=== PATIENT | female | born 1990 | race Caucasian/White ===

== ENCOUNTER → 2016-06-28 | Outpatient (CLI) | payer BC, MEDICAID ==
[~2016-06-28] MED LIST: ALKA-SELTZER E1 EACH PO; AMARYL1 MG PO; APNO TOP; BUSPAR5 MG PO; DERMOPLAST SPRA56 GM TOP; MOTRIN800 MG PO; PEPCID AC10 MG PO; PERCOCET 5-3251 EACH PO; PRENATAL 1+1)(P1 TAB PO
--- NOTE | ~2016-06-28 | ECHO ---
Transthoracic Echocardiography Report (TTE) Demographics Patient Name LATONIA ROBBINS Date of Study 06/28/2016 Patient Number [id number] Visit Number [id number] Date of 1990 Room Number Gender Female Number Age 26 year(s) Referring Didier Arellano MD Flower Picker Dione Yost RVT, Physician Pancho Mcclure MD Physician Interpreting Pancho Senior Revenue Accountant Physician Tisha Mcclure MD Supervising Ordering Pancho MD/MLP Physician Tisha Mcclure MD Nurse Stress Geomagnetist Conclusions Contractility Score Summary Normal Left Ventricular contractility was noted. Summary The estimated left ventricular ejection fraction is 60%. The left ventricle is normal in size . Diastolic assessment reveals probably normal diastolic function . Procedure Type of Study TTE procedure:2D Echocardiogram. Procedure Date Date: 06/28/2016 Start: 11:43 AM Study Location: Echo Lab Technical Quality: Good visualization Indications:Palpitations. Appropriate Use Criteria: 8 Patient Status: Routine Rhythm: NSR HR: 93 bpm BP: 137/65 mmHg M-Mode/2D Measurements LV Diastolic Dimension: 4.02 cm LV Systolic Dimension: 2.89 cm LV Septum Diastolic: 1.19 cm LV PW Diastolic: 0.97 cm AO Root Dimension: 1.9 cm Cardiac Output: 5.03 l/min AV Cusp Separation: 1.7 cm RV Diastolic Dimension: 3.09 cm LA volume: 39 ml LVOT: 1.9 cm RV Base: 2.69 cm LVOT VTI: 19.1 cm RV Mid: 2.23 cm LV Stroke volume: 54.13 ml TAPSE: 2.17 cm TDI-S': 12.3 cm/s Doppler Measurements AV Peak Velocity: 1.32 m/s MV Peak E-Wave: 0.58 m/s AV Peak Gradient: 6.97 mmHg MV Peak A-Wave: 0.65 m/s AV Mean Gradient: 4 mmHg MV E/A Ratio: 0.89 LVOT Peak Velocity: 0.9 m/s MV Deceleration Time: 222 msec PV Peak Velocity: 1 m/s PV Peak Gradient: 4 mmHg E' Septal Velocity: 0.09 m/s A' Septal Velocity: 0.16 m/s E' Lateral Velocity: 0.12 m/s A' Lateral Velocity: 0.09 m/s Findings Left Ventricle The left ventricle is normal in size . Diastolic assessment reveals probably normal diastolic function . Right Ventricle Normal right ventricle structure and function. Left Atrium Normal left atrial size. There is no evidence of patent foramen ovale or atrial septal defect by color Doppler. Right Atrium Normal right atrial size. Mitral Valve Normal mitral valve structure and function. Aortic Valve Normal aortic valve structure and function. Tricuspid Valve Normal tricuspid valve structure and function. Trivial tricuspid regurgitation . Pulmonic Valve Normal pulmonic valve structure and function. Pericardial Effusion No evidence of pericardial effusion. Miscellaneous Visualized portions of the aortic root and ascending aorta appear normal in size. Pleural Effusion No evidence of pleural effusion. Contractility Score LV regional wall motion:(0-Non visualized 1-Normal 2-Hypokinesis 3-Akinesis 4-Dyskinesis 5-Aneurysm) Signature dtt: Buster Deleon dtd: 06/28/16 1143 Physician Self Edit
== END | disposition disaster alternative care site (69) ==
LOC: GCAR 11:37
DX: R00.2 Palpitations (principal)

== ENCOUNTER → 2016-06-28 | Outpatient (CLI) | payer BC, MEDICAID ==
[2016-06-28 13:39] LABS: ANION GAP 14.8 (10.0-19.0); BLOOD UREA NITROGEN 8 mg/dL (6-24); CALCIUM 8.7 mg/dL (8.5-10.5); CHLORIDE 110 mMol/L (96-110); CO2 19 mMol/L (22-32); CREATININE 0.3 mg/dL (0.5-1.1); ESTIMATED GFR (MDRD EQUATION) > 60; MAGNESIUM 1.9 mg/dL (1.8-2.6); POTASSIUM 3.8 mMol/L (3.7-5.1); SODIUM 140 mMol/L (135-145)
== END ==
LOC: LNHI 12:57
PROVIDERS: Internal Medicine Cardiovascular Disease
DX: R00.2 Palpitations (principal)

== ENCOUNTER 2016-09-09 19:16 | Outpatient (CLI) | payer BC, MEDICAID ==
[~2016-09-09] VITALS: Ht 152.4 cm; Wt 90.2 kg
--- NOTE | ~2016-09-09 | HP ---
PATIENT'S NAME: JEANE ROBBINSLEY Deedee [facility] AGE: 26 Y [address] ROOM: [place] [address] LOCATION: [facility] ADMIT DATE: 09/09/2016 History & Physical DISCHARGE DATE: 09/09/2016 FAMILY PHYSICIAN: Eric Chi MD ATTENDING PHYSICIAN: Eric Chi DATE OF SERVICE: CHIEF COMPLAINT: Increased movement. HISTORY OF PRESENT ILLNESS: The patient is a 26-year-old with intrauterine at 36 weeks and 3 days, who presented with increased movement. The patient denies any loss of fluids, bleeding, or contractions. The patient denies any fevers, chest pain, shortness of breath, or abdominal pain. PAST MEDICAL HISTORY: Gestational diabetes. PAST SURGICAL HISTORY: None. ALLERGIES: ZITHROMAX. SOCIAL HISTORY: The patient denies any alcohol or tobacco use. FAMILY HISTORY: Noncontributory. REVIEW OF SYSTEMS: A complete review of systems was obtained, pertinent positives and negatives as mentioned in the HPI. OBJECTIVE: VITAL SIGNS: Temperature 98.6, pulse 106, and pressures in the 130s/70s. GENERAL: The patient is alert and oriented, appears in no acute distress. Mood euthymic. HEENT: Head: Normocephalic, atraumatic. Eyes: Conjunctivae clear. No scleral icterus. Mouth and Oropharynx: Mucosa moist and pink. No lesions or exudates. NECK: Supple. No lymphadenopathy or thyromegaly. HEART: Regular rate and rhythm. No rubs, murmurs, or gallops. PATIENT'S NAME: [facility] AGE: 26 Y [address] ROOM: [place] [address] LOCATION: [facility] ADMIT DATE: 09/09/2016 History & Physical DISCHARGE DATE: 09/09/2016 FAMILY PHYSICIAN: Eric Chi MD ATTENDING PHYSICIAN: Eric Chi LUNGS: Clear to auscultation bilaterally. ABDOMEN: Gravid. heart tones 140, reactive. Tocometer shows a little bit of irritability, and cervix is long, closed, thick. LABORATORY DATA: CBC was within normal limits. CMP had an elevated glucose, and UA did show indication for infection. ASSESSMENT: -0-0-2 with intrauterine at 36 weeks and 3 days, GBS negative with urinary tract infection. PLAN: Labor precautions were given. The patient was given Rocephin 1 g at the hospital. We will send her urine to culture. We will send the patient home on Ceftin 250 mg p.o. b.i.d. for 5 days. Also, encouraged her to drink plenty of fluids, especially during these hot days. She is to follow up with Dr. Velásquez next week or sooner if any concerns. MD LETICIA LOZOYA/alvino /[id number] D: [id number] T: [id number] HISTORY & PHYSICAL
[~2016-09-09 19:16] MED LIST changes: -ALKA-SELTZER E1 EACH PO; -APNO TOP; -DERMOPLAST SPRA56 GM TOP; -MOTRIN800 MG PO; -PEPCID AC10 MG PO; -PERCOCET 5-3251 EACH PO
[2016-09-09 19:49] LABS: BILIRUBIN URINE NEGATIVE (NEGATIVE); BLOOD URINE 10 /UL (NEGATIVE); COLOR URINE YELLOW (YELLOW); GLUCOSE URINE 100 mg/dL (NEGATIVE); KETONE URINE 150 mg/dL (NEGATIVE); LEUKOCYTES URINE 500 /UL (NEGATIVE); NITRITE URINE NEGATIVE (NEGATIVE); PROTEIN URINE 15 mg/dL (NEGATIVE); SPEC GRAVITY URINE 1.025 (1.003-1.035); TURBIDITY URINE 3+ (CLEAR); UROBILINOGEN URINE NORMAL (NORMAL)
[2016-09-09 19:53] LABS: BASOPHIL % 0.3 %; EOSINOPHIL # 0.1 K/uL (0.0-0.5); EOSINOPHIL % 0.5 %; HEMATOCRIT 35.1 % (33.0-46.0); IMMATURE GRANULOCYTE % 0.3 %; LYMPHOCYTE % 16.8 %; MCH 29.3 pg (27.0-34.0); MCHC 34.2 gm/dL (32.0-36.5); MCV 85.8 fl (83.0-98.0); MONOCYTE # 0.6 K/uL (0.0-1.0); MONOCYTE % 4.8 %; MPV 9.9 fl (9.4-12.4); NEUTROPHIL % 77.3 %; NRBC % 0 /100WBC (0-0.00); PLATELET COUNT 211 K/uL (150-450); RBC 4.09 M/uL (3.50-5.00); RDW-CV 13.9 % (11.9-14.6); WBC 11.7 K/uL (4.0-11.0)
[2016-09-09 19:58] LABS: BACTERIA URINE MODERATE (NEGATIVE); EPITHELIAL URINE 20-50 #/HPF (NEGATIVE); RBC URINE 0-2 #/HPF (NEGATIVE); WBC URINE 50-100 #/HPF (NEGATIVE)
[2016-09-09 20:00] LABS: CRYSTALS URINE CALCIUM OXALATE (NEGATIVE)
[2016-09-09 20:08] LABS: ALBUMIN 2.6 gm/dL (3.5-5.0); ALK PHOS 96 IU/L (33-138); ALT 16 IU/L (12-78); ANION GAP 11.6 (10.0-19.0); AST 11 IU/L (10-40); BLOOD UREA NITROGEN 8 mg/dL (6-24); CALCIUM 8.4 mg/dL (8.5-10.5); CHLORIDE 111 mMol/L (96-110); CO2 22 mMol/L (22-32); CREATININE 0.6 mg/dL (0.5-1.1); POTASSIUM 3.6 mMol/L (3.7-5.1); SODIUM 141 mMol/L (135-145); TOTAL BILIRUBIN 0.5 mg/dL (0.0-1.5); TOTAL PROTEIN 6.4 g/dL (6.0-8.4)
== END 2016-09-09 21:30 | disposition disaster alternative care site (69) ==
LOC: GOBS 19:16 → GOBM 19:16
PROVIDERS: Family Medicine
DX: O36.8990 Maternal care for other specified fetal problems, unspecified trimester, not applicable or unspecified (principal); O24.419 Gestational diabetes mellitus in pregnancy, unspecified control; Z3A.36 36 weeks gestation of pregnancy; Z88.1 Allergy status to other antibiotic agents; Z91.040 Latex allergy status
CPT/HCPCS: G0463; J0696

== ENCOUNTER 2016-09-28 06:34 | Inpatient (IN) | payer BC, MEDICAID ==
[~2016-09-28] VITALS: Ht 152.4 cm; Wt 201.0 kg
--- NOTE | ~2016-09-28 | OR ---
PATIENT'S NAME: ITZEL PINE BROOK Deedee [facility] AGE: 26 Y [address] ROOM: [address] [address] LOCATION: [facility] ADMIT DATE: 09/28/2016 OR/Procedure Report DISCHARGE DATE: FAMILY PHYSICIAN: Tati Velásquez MD ATTENDING PHYSICIAN: Tati Velásquez SURGEON: Tati Velásquez MD REGIONAL ACCOUNT EXECUTIVE: DATE OF PROCEDURE: 09/29/2016 DIAGNOSES: 1. Term intrauterine . 2. Gestational diabetes. 3. Prostaglandin gel induction. 4. Pitocin augmentation of labor. 5. Midline episiotomy. 6. Epidural anesthesia. 7. Delivery of a viable 7 pounds, 5 ounce male . DELIVERY NOTE: The patient is a 26-year-old 3, para 2-0-0-2 presents at 39 weeks and 1 day gestation. She presents for induction, secondary to gestation diabetes. Upon presentation, she was 1 to 2 cm, and prostaglandin gel was placed after reactive strip was present. Pitocin augmentation of labor was then added. She progressed to 5 cm of dilation, which artificial rupture of membranes was performed. She did obtain epidural anesthesia after that. She progressed to complete dilation without difficulty and pushed effectively 2 contractions to deliver a viable 7 pounds, 5 ounce male infant with scores at 7 at one minute and 9 at five minute. Nuchal cord was present and it was doubly clamped and cut without difficulty. Baby was delivered in full without difficulty. Bulb suctioning was performed. Placenta was delivered intact with 3-vessel cord. Light meconium staining was present upon delivery. There were no cervical lacerations and no vaginal sidewall lacerations. Sponge count and needle count were correct. Midline episiotomy was repaired with 3-0 chromic with interlocking sutures to the perineum, continuous sutures, and subcuticular sutures back. The patient tolerated delivery well and was in room in stable condition with baby after delivery. TATI VELÁSQUEZ MD CSM/modl PATIENT'S NAME: REHOBOTH MCKINLEY [facility] AGE: 26 Y [address] ROOM: [place] [address] LOCATION: [facility] ADMIT DATE: 09/28/2016 OR/Procedure Report DISCHARGE DATE: FAMILY PHYSICIAN: Tati Velásquez MD ATTENDING PHYSICIAN: Tati Velásquez /[id number] d: t: 09/29/16 0828, OPERATIVE SUMMARY
[2016-09-28 07:48] LABS: BASOPHIL % 0.3 %; EOSINOPHIL # 0.1 K/uL (0.0-0.5); EOSINOPHIL % 0.5 %; HEMATOCRIT 35.1 % (33.0-46.0); IMMATURE GRANULOCYTE # 0.1 K/uL (0.0-0.3); IMMATURE GRANULOCYTE % 0.6 %; LYMPHOCYTE # 2.7 K/uL (0.8-4.0); LYMPHOCYTE % 24.2 %; MCH 29.5 pg (27.0-34.0); MCHC 34.2 gm/dL (32.0-36.5); MCV 86.2 fl (83.0-98.0); MONOCYTE # 0.5 K/uL (0.0-1.0); MONOCYTE % 4.9 %; MPV 10.2 fl (9.4-12.4); NEUTROPHIL # (ANC) 7.6 K/uL (1.8-7.8); NEUTROPHIL % 69.5 %; NRBC % 0 /100WBC (0-0.00); PLATELET COUNT 223 K/uL (150-450); RBC 4.07 M/uL (3.50-5.00); RDW-CV 13.6 % (11.9-14.6)
[2016-09-28] MEDS ORDERED: ALKA-SELTZER E1 EACH PO (09:29)
[2016-09-28] MEDS ORDERED: PEPCID AC10 MG PO (09:29)
--- NOTE | 2016-09-28 17:21 | NUR ---
Significant event: *.VSS. Pt 1cm/thick/high/ballotable on admit. Prostin x1 dose. Pitocin started @ 1300. Currently @ 13mu/min. Pt now 4cms/25%/-3. Variable decels apprx 30 min after gel placed. FHR stable since. Pt remains intact & Dr. Velásquez planning to rupture membranes @ 1800. Gestational Diabetic. Accuchecks prn 138 & 101.
--- NOTE | 2016-09-29 06:54 | NUR ---
last temp 99.2, fundus firm to the R, Juancarlos at 0314, episiotomy midline
--- NOTE | 2016-09-29 12:48 | NUR ---
Met patient and at bedside today. Introduced [facility] to them. I explained my role with the CM department to them. Parents state they have all the necessary items at home for baby. Provided mom with a list of community resources. Informed them that they have 30 days to get baby added onto their insurance. Mom states she has BCBS and Medicaid. Encouraged her to contact both and notify them of baby Pavithra's . Discussed signs and symptoms of post depression and left her the hand out to refer to. Encouraged her to contact her doctor if she has any signs or symptoms. She is not planning on being involved with WIC at this time, but knows their services are available. Will continue to follow and offer supports.
--- NOTE | 2016-09-29 18:00 | NUR ---
Significant Event: Follow up: VSS, SL remains int R) wrist. Has own anxiety meds, that need to be reordered.Tidied this am beefore 06, stu @ 1700, medicated with motrin @ 1156, Percocet 1) @ 1197, wants all purpose nipple ointment, need to get it signed off. MMr ordered, in refrig to be given tomorrow, befor e discharge. Plans home tomorrow, BC worksheet completed.
[2016-09-30 04:16] LABS: BASOPHIL % 0.4 %; EOSINOPHIL # 0.1 K/uL (0.0-0.5); EOSINOPHIL % 1.3 %; HEMATOCRIT 29.8 % (33.0-46.0); IMMATURE GRANULOCYTE # 0.1 K/uL (0.0-0.3); IMMATURE GRANULOCYTE % 0.7 %; LYMPHOCYTE # 3.3 K/uL (0.8-4.0); LYMPHOCYTE % 29.4 %; MCH 29.7 pg (27.0-34.0); MCHC 33.6 gm/dL (32.0-36.5); MCV 88.4 fl (83.0-98.0); MONOCYTE # 0.6 K/uL (0.0-1.0); MONOCYTE % 5.3 %; MPV 9.8 fl (9.4-12.4); NEUTROPHIL % 62.9 %; NRBC % 0 /100WBC (0-0.00); RBC 3.37 M/uL (3.50-5.00); RDW-CV 13.9 % (11.9-14.6); WBC 11.1 K/uL (4.0-11.0)
[2016-09-30 04:22] LABS: PLATELET COUNT 160 K/uL (150-450)
--- NOTE | 2016-09-30 17:09 | NUR ---
1700, PT AMBULATING IN ROOM. REPORTS TO NURSE SHE HEARS RINGING IN HER EARS. NO C/O DIZZINESS. VSS. ENCOURGAGED FLUIDS AND REST.
[2016-09-30] MEDS ORDERED: APNO TOP (19:04)
[2016-09-30] MEDS ORDERED: PRENATAL 1+1)(P1 TAB PO (19:06)
[2016-09-30] MEDS ORDERED: DERMOPLAST SPRA56 GM TOP (19:07)
[2016-09-30] MEDS ORDERED: MOTRIN800 MG PO (19:08)
[2016-09-30] MEDS ORDERED: PERCOCET 5-3251 EACH PO (19:09)
== END 2016-09-30 19:40 | disposition disaster alternative care site (69) | DRG 775 ==
LOC: GOBS 06:34 → GOBM 06:34 → GOBS 19:44 → GOBM 10-01 06:16
PROVIDERS: ADMIT Family Medicine
PROC: 10907ZC Drainage of Amniotic Fluid, Therapeutic from Products of Conception, Via Natural or Artificial Opening (ICD-10-PCS; principal; 2016-09-29)
PROC: 3E0P7GC Introduction of Other Therapeutic Substance into Female Reproductive, Via Natural or Artificial Opening (ICD-10-PCS; principal; 2016-09-29)
PROC: 0W8NXZZ Division of Female Perineum, External Approach (ICD-10-PCS; principal; 2016-09-29)
PROC: 10E0XZZ Delivery of Products of Conception, External Approach (ICD-10-PCS; principal; 2016-09-29)
DX: O24.425 Gestational diabetes mellitus in childbirth, controlled by oral hypoglycemic drugs (principal); O77.0 Labor and delivery complicated by meconium in amniotic fluid; O69.81X0 Labor and delivery complicated by cord around neck, without compression, not applicable or unspecified; Z3A.39 39 weeks gestation of pregnancy; Z37.0 Single live birth
CPT/HCPCS: J2001; J2405; J2590; J3010; J7120